=== PATIENT | male | born 1965 | race Caucasian/White ===

== ENCOUNTER 2018-07-27 15:21 | Emergency (ER) | payer OTHER ==
[~2018-07-27] VITALS: Ht 175.3 cm; Wt 115.7 kg
[2018-07-27 15:23] VITALS: BP 137/95
[2018-07-27] MEDS ORDERED: AMITRIPTYLINE H25 M2 PO (16:01)
[2018-07-27] MEDS ORDERED: LOSARTAN POTAS100 MG PO (16:02)
[2018-07-27] MEDS ORDERED: LIPITOR40 MG PO (16:02)
[2018-07-27] MEDS ORDERED: OMEPRAZOLE40 MG PO (16:02)
[2018-07-27] MEDS ORDERED: CLONAZEPAM 1 MG1 M1 PO (16:03)
[2018-07-27] MEDS ORDERED: UNKNOWN BP MED (16:03)
== END 2018-07-27 16:35 | disposition home or self-care (01) ==
LOC: ER 15:21
DX: M25.571 Pain in right ankle and joints of right foot (principal); Z87.81 Personal history of (healed) traumatic fracture